=== PATIENT | female | born 1975 | race Caucasian/White ===

== ENCOUNTER 2016-12-02 17:51 | Emergency (ER) | payer SELFPAY ==
[~2016-12-02] VITALS: Ht 163.8 cm; Wt 62.2 kg
[~2016-12-02 17:51] MED LIST: ETONMIS VAGRING
[2016-12-02 17:59] VITALS: TEMP 36.8; Ht 163.8 cm; Wt 62.2 kg
[2016-12-02] MEDS ORDERED: SODIUM CHLORIDE 0.9% 1000ML 1,000 ML IV STA (18:14)
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
[2016-12-02 18:38] LABS: BASO % 0.5 %; BASO ABS # 0.05 K/uL (0-0.2); COMPLETE YES; EOS % 1.9 %; HEMATOCRIT 43.3 % (37-47); IG% 0.1 %; LYMPH ABS # 2.23 K/uL (1.2-3.4); MEAN CELL VOLUME 98.4 fL (80-100); MEAN CORPUSCULAR HEMOGLOBIN 35.2 pg (25-34); MEAN CORPUSCULAR HGB CONC 35.8 g/dl (32-36); MEAN PLATELET VOLUME 11.1 fL (7.4-10.4); MONO % 6.4 %; NEUT % 67.1 %; PLATELET COUNT 144 K/uL (130-400); WHITE BLOOD COUNT 9.29 K/uL (4.8-10.8)
[2016-12-02] MEDS ORDERED: MULT-506 PO (18:40)
[2016-12-02 18:41] VITALS: O2SAT 96
--- NOTE | 2016-12-02 18:41 | DIAGNOSTIC IMAGING REPORT ---
CHEST ONE VIEW PORTABLE CLINICAL HISTORY: CHEST PAIN dyspnea COMPARISON STUDY: No previous studies for comparison. FINDINGS: The bones soft tissues and hemidiaphragms are normal. The cardiomediastinal silhouette is normal. The lungs are clear. The pulmonary vasculature is normal. IMPRESSION: Negative chest. The above report was generated using voice recognition software. It may contain grammatical, syntax or spelling errors. Electronically signed by: Baljeet Villalta M.D. 12/02/2016 6:40 PM Dictated Date/Time: 12/02/2016 6:40 PM
[2016-12-02 18:56] LABS: ALT/SGPT 30 U/L (12-78); AST/SGOT 17 U/L (15-37); BLOOD UREA NITROGEN 5 mg/dl (7-18); BUN/CREATININE RATIO 6.7 (10-20); CALCIUM 8.8 mg/dl (8.5-10.1); CARBON DIOXIDE 25 mmol/L (21-32); CHLORIDE 104 mmol/L (98-107); CREATININE 0.72 mg/dl (0.60-1.20); GLUCOSE 106 mg/dl (70-99); POTASSIUM 3.4 mmol/L (3.5-5.1); SODIUM 137 mmol/L (136-145)
[2016-12-02 19:00] LABS: ALKALINE PHOSPHATASE 100 U/L (45-117)
[2016-12-02 19:02] LABS: INR 0.9 (0.9-1.1); PARTIAL THROMBOPLASTIN RATIO 1.1; PROTHROMBIN TIME (PATIENT) 10.1 SECONDS (9.0-12.0)
[2016-12-02 19:13] LABS: PREG INTERNAL NEGATIVE QC NEG CLEAR BACKGROUND; PREG INTERNAL POSITIVE QC POS CONTROL LINE
--- NOTE | 2016-12-02 19:29 | DIAGNOSTIC IMAGING REPORT ---
(CHEST FOR PE) ANGIO WITH CT DOSE: 166.26 mGy.cm HISTORY: Chest pain dyspnea TECHNIQUE: Multiaxial CT images of the chest were performed following the intravenous administration of contrast to evaluate the pulmonary arteries. Maximal intensity projection images were also obtained. A dose lowering technique was utilized adhering to the principles of ALARA. COMPARISON STUDY: None. FINDINGS: There is a normal caliber thoracic aorta with no evidence for dissection. There is no evidence for pulmonary embolus. No pleural effusions. No pneumothorax. The liver and spleen are unremarkable. No mediastinal or hilar lymphadenopathy. The central airways are patent. The lungs are clear. 3 mm pleural-based nodule right upper lobe with routine follow-up recommended. IMPRESSION: No evidence for pulmonary embolus. The lungs are clear. 3 mm pleural-based nodule right upper lobe with routine follow-up recommended per protocol. Please refer to below summary of Fleischner criteria recommendations for follow-up of incidental CT nodules (Bernard Mathur, Guidelines for management of small pulmonary nodules detected on CT scans: A statement from the Fleischner Society, Radiology 237: [phone].) SOLID NODULES Solitary nodule size: <6 mm * low risk patients: no follow-up needed * high risk patients: optional CT at 12 months Solitary nodule size: 6-8 mm * low risk patients: follow-up at 6-12 months, then consider further follow-up at 18-24 months * high risk patients: initial follow-up CT at 6-12 months and then at 18-24 months if no change Solitary nodule size: >8 mm * either low or high risk patients - consider follow-up CT at 3 months, and/or CT-PET, and/or biopsy Multiple nodules size: <6 mm * low risk patients: no routine follow-up * high risk patients: optional CT at 12 months Multiple nodules size: 6-8 mm * low risk patients: follow-up at 3-6 months, then consider further follow-up at 18-24 months * high risk patients: follow-up at 3-6 months, then at 18-24 months if no change Multiple nodules size: >8 mm * low risk patients: follow-up at 3-6 months, then consider further follow-up at 18-24 months * high risk patients: follow-up at 3-6 months, then at 18-24 months if no change Note: newly detected indeterminate nodule in persons 35 years of age or older. * Low risk patients: minimal or absent history of smoking and/or other known risk factors * high risk patients: history of smoking or of other known risk factors (e.g. first degree relative with lung cancer, or exposure to asbestos, radon, uranium) * if a nodule up to 8 mm is partly solid or is ground glass further follow-up is required after 24 months to exclude possible slow growing adenocarcinoma (JORGE ALBERTO) SUBSOIL NODULES Solitary pure ground-glass nodule * nodule size <6 mm - no CT follow-up required * nodule size >=6 mm - follow-up CT at 6-12 months, then every 2 years until 5 years Solitary part-solid nodule * nodule size <6 mm - no CT follow-up required * nodule size >=6 mm - follow-up CT at 3-6 months. If unchanged, and solid component remains <6 mm, then annual follow-up for 5 years Multiple subsolid nodules * nodule size <6 mm - follow-up CT at 3-6 months, consider further follow-up at 2 and 4 years if stable * nodule size >=6 mm - follow-up CT at 3-6 months, subsequent management based on the most suspicious nodule(s) The above report was generated using voice recognition software. It may contain grammatical, syntax or spelling errors. Electronically signed by: Baljeet Villalta M.D. 12/02/2016 7:28 PM Dictated Date/Time: 12/02/2016 7:25 PM
[2016-12-02] MEDS ORDERED: OPTIRAY 320 IV PRN (19:30)
[2016-12-02] MEDS ORDERED: OXYC1TAB3 PO (19:36)
[2016-12-02] MEDS ORDERED: OXYCODONE IR HOME PACK PO ONE (19:45)
[2016-12-02 19:55] VITALS: BP 167/105; PULSE 89; O2SAT 98
== END 2016-12-02 19:55 | disposition home or self-care (01) ==
LOC: C.EDB 17:52
DX: S20.219A Contusion of unspecified front wall of thorax, initial encounter (principal); R07.9 Chest pain, unspecified; Y93.61 Activity, american tackle football; R91.1 Solitary pulmonary nodule; F17.210 Nicotine dependence, cigarettes, uncomplicated

== ENCOUNTER 2025-03-16 12:34 | Inpatient (IN) ==
[2025-03-16 13:17] LABS: Appearance Urine Clear (Clear); Glucose Urine UA Negative (Negative)
[2025-03-16 13:25] LABS: Hematocrit (blood only) 45.2 % (37.0-47.0); Hemoglobin 16.4 g/dL (12.0-16.0); Immature Granulocytes # (auto) 0.03 K/uL (0.01-0.20); Immature Granulocytes % (auto) 0.4 %; Mean Corpuscular Hemoglobin 34.7 pg (25.0-34.0); Mean Corpuscular Volume 95.8 fL (80.0-100.0); Platelet Count 152 K/uL (130-400); RDW Standard Deviation 44.5 fL (36.4-46.3); Red Blood Count 4.72 M/uL (4.20-5.40); White Blood Count 7.54 K/ul (4.8-10.8)
[2025-03-16 13:39] LABS: Acetaminophen < 3 ug/ml (10-30); Salicylate < 3.0 mg/dl (3.0-30)
[2025-03-16 13:44] LABS: Alanine Aminotransferase 15.0 U/L (7-52); Albumin Globulin Ratio 1.4 (0.9-2); Albumin Level 4.4 gm/dl (3.4-5.0); Alkaline Phosphatase 69.0 U/L (34-104); Anion Gap 11.0 (3-11); Bilirubin,Total 0.8 mg/dl (0.2-1.0); Blood Urea Nitrogen 10.0 mg/dl (6-23); Calcium 9.2 mg/dl (8.6-10.3); Carbon Dioxide 24.0 mmol/L (21-32); Chloride 105.0 mmol/L (98-107); Creatinine Clr Calc Pharmacy 76.1 ml/min; Globulin 3.1 gm/dl (2.5-4.0); Glucose 124.0 mg/dl (70-99(Fasting)); Potassium 3.6 mmol/L (3.5-5.1); Sodium 140.0 mmol/L (136-145); Total Protein 7.5 gm/dl (6.0-8.3)
[2025-03-16 13:57] LABS: Thyroid Stimulating Hormone 0.675 uIu/ml (0.300-4.500)
[2025-03-16 14:07] LABS: Amphetamines+Metham, Urine Neg (Neg); MDMA (Ecstacy), Urine Neg (Neg); Marijuana, Urine Pos (Neg)
--- NOTE | 2025-03-16 14:28 | Emergency Department Note ---
Impression & Plan Depression with suicidal ideation, Alcohol withdrawal ED Provider Note Provider: Aashish Melton MD CHIEF COMPLAINT: Depression, suicidal thoughts HISTORY OF PRESENT ILLNESS: Patient is a 50-year-old female presenting here today reporting that over the past month she has had worsening suicidal thoughts. States she does not have a clear plan but can think of several ways to kill her self. Denies attempting to harm self at this time. States that she history of alcoholism and has been sober for 2 years until about a month ago. Drinking heavy amount of vodka every day. States she just needs to get things sorted and feels very stressed out. Denies wanting to harm others. Not currently with an outpatient counselor/therapist or primary care doctor. States she feels a bit cold and somewhat shaky. Denies a history of hallucinations but was hospitalized with possibly alcohol related seizure several years ago. PAST MEDICAL HISTORY: As noted above MEDICATIONS: Reviewed and states she is not taking current prescription medication SOCIAL HISTORY: Heavy alcohol use, uses marijuana, denies other drugs, lives at home with PHYSICAL EXAM: GENERAL: alert and oriented on bed appears a bit tremulous. Head: normocephalic and atraumatic EYES: No injection, discharge or icterus. EOMI. NECK: Trachea midline. Good range of motion ENT: Mucous membranes pink and moist. LUNGS: Airway patent. No retractions or tachypnea HEART: Regular rate and rhythm. SKIN: Acyanotic, warm, dry, without rashes EXTREMITIES: Without swelling, tenderness or deformity NEUROLOGICAL: Moving all extremities. No aphasia. No facial droop or slurred speech. Ambulatory. Psych: Seems to have some insight but expresses suicidal thoughts and ideation. Denies HI not responding to external stimuli. Flattened affect. Appears anxious. EK beats. Normal sinus rhythm. No PVC or PAC. No acute ST segment elevation or depression QTc 422. CONTINUOUS CARDIAC MONITORING: was ordered and showed a heart rate of 80s to 90s bpm in normal sinus rhythm Patient's laboratory studies and imaging reviewed. Differential includes Mood disorder, infection, hypoglycemia, electrolyte abnormalities, cardiac sources, intracerebral event, toxicologic, trauma, neurologic, as well as other pathologies. IMPRESSION/MEDICAL DECISION MAKING: Seem somewhat anxious. Somewhat hypertensive borderline tachycardic. Denies pain or attempts to harm self but states multiple plans. History of alcohol abuse. Given a bit Ativan here as well as thiamine given her history of significant alcohol use. Basic blood work including alcohol level completed. Last drink was this morning. Slight alcohol level detected 59 not significantly elevated. Does not appear intoxicated. No believe we need additional imaging at this time. No other severe electrolyte abnormalities or renal dysfunction noted. Seen with case management as well given her mental health complaints. Seems quite depressed and reports significant suicidal thoughts. She is wishing for inpatient treatment. Given her history of seizure in the setting of possible alcohol withdrawal in 2020 for she was hospitalized here and what appears to be some early symptoms that could very well be alcohol withdrawal now with some tremulousness and her heavy alcohol use, discussed resisting for inpatient care here to ensure no severe medical alcohol withdrawal before proceeding for rehab/dual diagnosis/inpatient psychiatric care. Hospitalist team was consulted. Given one-time small dose of Ativan here initially. Discussed with the hospitalist case and they will consider the use of phenobarbital. DIAGNOSIS: Depression with suicidal ideation, alcohol withdrawal DISPOSITION: Hospitalist will evaluate Patient was agreeable with this plan. Past Med/Surg History Problem List (Updated 03/16/25 @ 14:28 by Aashish Melton M.D.) Alcohol withdrawal (Acute) Depression with suicidal ideation (Acute) Hypertension Depression with anxiety Seizure (Acute) Malignant hypertension (Acute) Chest pain (Acute) Chest wall contusion (Acute) Medical History Depression with anxiety Hypertension Surgical History No pertinent past surgical history S/P appendectomy Family History Mother Heart disease Diabetes Hypertension Father Heart disease Hypertension Diabetes Other Cancer Lung disease Social History Smoking Status: Current every day smoker Tobacco Type: Cigarettes Age Started Using Tobacco: 19; packs per day: 0.5; Cigarettes Per Day: 10; Hx Alcohol Use: Yes Alcohol type: hard liquor Alcohol Intake Frequency Comment: bottle of vodka per week Hx Substance Use: No Preferred Language: [place] Communication Ability: 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 Beliefs That Will Affect Care: None Current Living Situation: Spouse and Family Current Living Situation Comment: and son current occupational status: employed current occupation: works at [employer] Feels Safe at Home: Yes Safety Concerns: Feels Safe At This Time Assistive Devices: Glasses Allergies Allergies Allergy/AdvReac Type Severity Reaction Status Date / Time No Known Allergies Allergy Verified 05/02/22 14:27 Home Meds Home Medications Medication Instructions Recorded Confirmed chlordiazepoxide HCl 10 mg capsule 10 mg PO QAM 09/19/20 05/02/22 hydroxyzine HCl 25 mg tablet 25 mg PO Q6 PRN Anxiety 09/19/20 05/02/22 medroxyprogesterone 150 mg/mL 150 mg IM . EVERY 3 MONTHS 09/19/20 05/02/22 intramuscular syringe spironolactone 50 mg tablet 50 mg PO BID 09/19/20 05/02/22 trazodone 50 mg tablet 50 mg PO HS PRN Sleep 09/19/20 05/02/22 escitalopram oxalate 10 mg tablet 10 mg PO DAILY 05/02/22 05/02/22 Results & Data (ED) Vital Signs Vital Signs - 24 hr 03/16/25 12:40 03/16/25 13:22 03/16/25 13:28 Temperature 36.8 C 36.7 C Temperature Source Oral Oral Pulse Rate 88 97 H Pulse Rate [Left Apical] 80 Pulse Rate from SpO2 Sensor Respiratory Rate 18 21 Respiratory Effort / Characteristics Non-Labored Spontaneous Spontaneous Short of Breath Respiratory Depth Normal Normal Respiratory Pattern Regular Regular Blood Pressure 170/114 H Blood Pressure [Right Arm] 182/116 H Blood Pressure Mean 132 Blood Pressure Mean [Right Arm] 138 Blood Pressure Position Sitting Blood Pressure Position [Right Arm] Semi-fowlers Pulse Oximetry 93 96 Oxygen Delivery Method Room Air Room Air Sepsis Recent Fever Within 48 Hours No Sepsis New/Unexplained Change in Mental Status No Sepsis Action Taken by Nursing No Action Required 03/16/25 13:30 03/16/25 14:00 03/16/25 14:30 Temperature Temperature Source Pulse Rate 85 92 H 81 Pulse Rate [Left Apical] Pulse Rate from SpO2 Sensor Respiratory Rate 24 24 14 Respiratory Effort / Characteristics Respiratory Depth Respiratory Pattern Blood Pressure 145/98 H 165/103 H 167/110 H Blood Pressure [Right Arm] Blood Pressure Mean 113 123 129 Blood Pressure Mean [Right Arm] Blood Pressure Position Blood Pressure Position [Right Arm] Pulse Oximetry 99 97 96 Oxygen Delivery Method Room Air Room Air Room Air Sepsis Recent Fever Within 48 Hours Sepsis New/Unexplained Change in Mental Status Sepsis Action Taken by Nursing 03/16/25 15:00 03/16/25 15:00 03/16/25 15:00 Temperature Temperature Source Pulse Rate Pulse Rate [Left Apical] Pulse Rate from SpO2 Sensor Respiratory Rate Respiratory Effort / Characteristics Respiratory Depth Respiratory Pattern Blood Pressure 154/99 H 154/99 H 154/99 H Blood Pressure [Right Arm] Blood Pressure Mean 110 110 110 Blood Pressure Mean [Right Arm] Blood Pressure Position Blood Pressure Position [Right Arm] Pulse Oximetry Oxygen Delivery Method Sepsis Recent Fever Within 48 Hours Sepsis New/Unexplained Change in Mental Status Sepsis Action Taken by Nursing 03/16/25 15:00 03/16/25 15:00 03/16/25 15:00 Temperature Temperature Source Pulse Rate 85 Pulse Rate [Left Apical] Pulse Rate from SpO2 Sensor 84 Respiratory Rate 22 Respiratory Effort / Characteristics Respiratory Depth Respiratory Pattern Blood Pressure 154/99 H 154/99 H Blood Pressure [Right Arm] Blood Pressure Mean 110 110 Blood Pressure Mean [Right Arm] Blood Pressure Position Blood Pressure Position [Right Arm] Pulse Oximetry 93 Oxygen Delivery Method Sepsis Recent Fever Within 48 Hours Sepsis New/Unexplained Change in Mental Status Sepsis Action Taken by Nursing 03/16/25 15:27 03/16/25 15:30 03/16/25 15:30 Temperature 37.5 C Temperature Source Oral Pulse Rate 89 Pulse Rate [Left Apical] Pulse Rate from SpO2 Sensor 89 Respiratory Rate 22 Respiratory Effort / Characteristics Respiratory Depth Respiratory Pattern Blood Pressure 142/100 H Blood Pressure [Right Arm] Blood Pressure Mean 111 Blood Pressure Mean [Right Arm] Blood Pressure Position Blood Pressure Position [Right Arm] Pulse Oximetry 92 Oxygen Delivery Method Sepsis Recent Fever Within 48 Hours Sepsis New/Unexplained Change in Mental Status Sepsis Action Taken by Nursing 03/16/25 15:30 03/16/25 15:30 03/16/25 15:30 Temperature Temperature Source Pulse Rate Pulse Rate [Left Apical] Pulse Rate from SpO2 Sensor Respiratory Rate Respiratory Effort / Characteristics Respiratory Depth Respiratory Pattern Blood Pressure 142/100 H 142/100 H 142/100 H Blood Pressure [Right Arm] Blood Pressure Mean 111 111 111 Blood Pressure Mean [Right Arm] Blood Pressure Position Blood Pressure Position [Right Arm] Pulse Oximetry Oxygen Delivery Method Sepsis Recent Fever Within 48 Hours Sepsis New/Unexplained Change in Mental Status Sepsis Action Taken by Nursing 03/16/25 15:30 03/16/25 15:30 03/16/25 15:30 Temperature Temperature Source Pulse Rate Pulse Rate [Left Apical] Pulse Rate from SpO2 Sensor Respiratory Rate Respiratory Effort / Characteristics Respiratory Depth Respiratory Pattern Blood Pressure 142/100 H 142/100 H 142/100 H Blood Pressure [Right Arm] Blood Pressure Mean 111 111 111 Blood Pressure Mean [Right Arm] Blood Pressure Position Blood Pressure Position [Right Arm] Pulse Oximetry Oxygen Delivery Method Sepsis Recent Fever Within 48 Hours Sepsis New/Unexplained Change in Mental Status Sepsis Action Taken by Nursing 03/16/25 15:30 03/16/25 15:30 03/16/25 16:00 Temperature Temperature Source Pulse Rate 87 Pulse Rate [Left Apical] Pulse Rate from SpO2 Sensor 89 Respiratory Rate 25 H Respiratory Effort / Characteristics Respiratory Depth Respiratory Pattern Blood Pressure 142/100 H 142/100 H Blood Pressure [Right Arm] Blood Pressure Mean 111 111 Blood Pressure Mean [Right Arm] Blood Pressure Position Blood Pressure Position [Right Arm] Pulse Oximetry 93 Oxygen Delivery Method Sepsis Recent Fever Within 48 Hours Sepsis New/Unexplained Change in Mental Status Sepsis Action Taken by Nursing 03/16/25 16:00 03/16/25 16:00 03/16/25 16:00 Temperature Temperature Source Pulse Rate Pulse Rate [Left Apical] Pulse Rate from SpO2 Sensor Respiratory Rate Respiratory Effort / Characteristics Respiratory Depth Respiratory Pattern Blood Pressure 147/102 H 147/102 H 147/102 H Blood Pressure [Right Arm] Blood Pressure Mean 128 128 128 Blood Pressure Mean [Right Arm] Blood Pressure Position Blood Pressure Position [Right Arm] Pulse Oximetry Oxygen Delivery Method Sepsis Recent Fever Within 48 Hours Sepsis New/Unexplained Change in Mental Status Sepsis Action Taken by Nursing 03/16/25 16:00 03/16/25 16:00 Temperature Temperature Source Pulse Rate Pulse Rate [Left Apical] Pulse Rate from SpO2 Sensor Respiratory Rate Respiratory Effort / Characteristics Respiratory Depth Respiratory Pattern Blood Pressure 147/102 H 147/102 H Blood Pressure [Right Arm] Blood Pressure Mean 128 128 Blood Pressure Mean [Right Arm] Blood Pressure Position Blood Pressure Position [Right Arm] Pulse Oximetry Oxygen Delivery Method Sepsis Recent Fever Within 48 Hours Sepsis New/Unexplained Change in Mental Status Sepsis Action Taken by Nursing Laboratory Data 03/16/25 13:00 03/16/25 13:00 Lab Results 03/16/25 03/16/25 03/16/25 Range/Units 12:53 12:54 13:00 WBC 7.54 (4.8-10.8) K/ul RBC 4.72 (4.20-5.40) M/uL Hgb 16.4 H (12.0-16.0) g/dL Hct 45.2 (37.0-47.0) % MCV 95.8 (80.0-100.0) fL MCH 34.7 H (25.0-34.0) pg MCHC 36.3 H (32.0-36.0) g/dL RDW Std Deviation 44.5 (36.4-46.3) fL RDW Coeff of Kyle 12.4 (11.5-14.5) % Plt Count 152 (130-400) K/uL MPV 10.3 (9.4-12.4) fL Immature Gran % (Auto) 0.4 % Neut % (Auto) 63.7 % Lymph % (Auto) 27.9 % [place] % (Auto) 4.4 % Eos % (Auto) 2.4 % Baso % (Auto) 1.2 % Neut # (Auto) 4.81 (1.40-6.50) K/uL Lymph # (Auto) 2.10 (1.20-3.40) K/uL [place] # (Auto) 0.33 (0.11-0.59) K/uL Eos # (Auto) 0.18 (0.00-0.50) K/uL Baso # (Auto) 0.09 (0.00-0.20) K/uL Immature Gran # (Auto) 0.03 (0.01-0.20) K/uL Sodium 140 (136-145) mmol/L Potassium 3.6 (3.5-5.1) mmol/L Chloride 105 (98-107) mmol/L Carbon Dioxide 24 (21-32) mmol/L Anion Gap 11 (3-11) BUN 10 (6-23) mg/dl Creatinine 0.72 (0.6-1.2) mg/dl Est Cr Clr Drug Dosing 76.1 ml/min eGFR 102.43 BUN/Creatinine Ratio 13.9 (10-20) Glucose 124 H (70-99(Fasting)) mg/dl Calcium 9.2 (8.6-10.3) mg/dl Total Bilirubin 0.8 (0.2-1.0) mg/dl AST 18 (13-39) U/L ALT 15 (7-52) U/L Alkaline Phosphatase 69 (34-104) U/L Total Protein 7.5 (6.0-8.3) gm/dl Albumin 4.4 (3.4-5.0) gm/dl Globulin 3.1 (2.5-4.0) gm/dl Albumin/Globulin Ratio 1.4 (0.9-2) TSH 0.675 (0.300-4.500) uIu/ml Urine Color Yellow Urine Appearance Clear (Clear) Urine pH 5.0 (4.5-7.5) Ur Specific [place] 1.020 (1.000-1.030) Urine Protein Negative (Negative) Urine Glucose (UA) Negative (Negative) Urine Ketones Negative (Negative) Urine Blood Negative (Negative) Urine Nitrite Negative (Negative) Urine Bilirubin Negative (Negative) Urine Urobilinogen Negative (Negative) Ur Leukocyte Esterase Negative (Negative) Urine Comment Salicylates < 3.0 L (3.0-30) mg/dl Urine Opiates Screen Neg (Neg) Ur Methadone, Qual Neg (Neg) Urine Fentanyl Screen Neg (Neg) Acetaminophen < 3 L (10-30) ug/ml Urine Barbiturates Neg (Neg) Ur Phencyclidine (PCP) Neg (Neg) U Amphetamin/Meth Scrn Neg (Neg) MDMA (Ecstasy) Screen Neg (Neg) U Benzodiazepines Scrn Neg (Neg) Ur Cocaine Metabolite Neg (Neg) U Marijuana (THC) Screen Pos H (Neg) Ethyl Alcohol mg/dL 59.5 H (<10.0) mg/dl SARS-CoV-2, RNA, NAAT NEGATIVE (NEGATIVE) Administered Medications Discontinued Medications Thiamine HCl 100 mg/ Syringe 10 mls @ 2 mls/min IV NOW STA Stop: 03/16/25 14:25 Last Admin: 03/16/25 15:17 Dose: 2 mls/min Documented By: JENNIFER Phenobarbital Sodium 260 mg/ (Sodium Chloride) 52 mls @ 312 mls/hr IV ONE ONE Stop: 03/16/25 16:34 Last Infusion: 03/16/25 17:30 Dose: Infused Documented By: Admin: 03/16/25 16:39 Dose: 312 mls/hr Documented By: JENNIFER Lorazepam (Lorazepam 1 Mg/1 Ml Syr Ed Inj Use) 1 mg IV ONE STA Stop: 03/16/25 14:22 Last Admin: 03/16/25 14:36 Dose: 1 mg Documented By: [facility] Phenobarbital Sodium (Phenobarbital Sodium 130 Mg/Ml Vial) 195 mg 3.6 mg/kg (195 mg) IM ONE ONE Stop: 03/16/25 19:34 Last Admin: 03/16/25 20:04 Dose: 195 mg Documented By: Discharge Plan Visit Data Chief Complaint: Mental Health Evaluation Stated Complaint: MENTAL HEALTH EVAL ED Provider: Aashish Melton Discharge Problem: Depression with suicidal ideation, Alcohol withdrawal Patient Disposition: Admitted As Inpatient Condition: Fair Discharge Instructions Interventions: ED Discharge Assessment Last Done: 03/16/25 17:19
[2025-03-16] MEDS: LORazepam 1 MG/1 ML SYR ED Inj Use IV STA (14:36)
[2025-03-16] MEDS: THIAMINE HCL 100 MG in SYRINGE 9 ML IV STA (15:17)
[2025-03-16] MEDS ORDERED: STAT IV/IM STA (16:17)
--- NOTE | 2025-03-16 16:19 | History & Physical Report ---
Date of Service March 16, 2025 Assessment & Plan (1) Alcohol withdrawal: Plan suicide ideation in a 50 yo female with depression. one to one psyh consult safe tray and monitor. will discuss with case management. Alcohol withdrawal phenobarbital loading dose with IV and IM doses WIll then start tapering tomorrow. Patient currently stable with regular vitals, will closely monitor. previously on naltrexone but lost insurance. History of Present Illness Primary Care Provider: NO PCP 50 yo female who arrives to the ED for suicidal ideation.Patient does not have a plan. Patient has not attempted any plan to hurt herself or others. Patient though also drinks 1 liter of vodka daily for past month. Prior to this she had been sober for 2 years. Patient is seeking help for her depression and concern for alcohol withdrawal. Allergies Allergy/AdvReac Type Severity Reaction Status Date / Time No Known Allergies Allergy Verified 05/02/22 14:27 Home Medications Medication Instructions Recorded Confirmed Type chlordiazepoxide HCl 10 mg capsule 10 mg PO QAM 09/19/20 05/02/22 History hydroxyzine HCl 25 mg tablet 25 mg PO Q6 PRN Anxiety 09/19/20 05/02/22 History medroxyprogesterone 150 mg/mL 150 mg IM . EVERY 3 MONTHS 09/19/20 05/02/22 Hist ory intramuscular syringe spironolactone 50 mg tablet 50 mg PO BID 09/19/20 05/02/22 History trazodone 50 mg tablet 50 mg PO HS PRN Sleep 09/19/20 05/02/22 History escitalopram oxalate 10 mg tablet 10 mg PO DAILY 05/02/22 05/02/22 History Past Med/Surg History Problem List Alcohol withdrawal (Acute) Depression with suicidal ideation (Acute) Hypertension Depression with anxiety Seizure (Acute) Malignant hypertension (Acute) Chest pain (Acute) Chest wall contusion (Acute) Surgical History S/P appendectomy No pertinent past surgical history Family History Mother Heart disease Diabetes Hypertension Father Heart disease Hypertension Diabetes Other Cancer Lung disease Social History Smoking Status: Current every day smoker Tobacco Type: Cigarettes Age Started Using Tobacco: 19; packs per day: 0.5; Cigarettes Per Day: 10; Hx Alcohol Use: Yes Alcohol type: hard liquor Alcohol Intake Frequency Comment: bottle of vodka per week Hx Substance Use: No Preferred Language: Guatemalan Communication Ability: Effective Emergency Management Consultant Required: No Beliefs That Will Affect Care: None Current Living Situation: Spouse and Family Current Living Situation Comment: and son current occupational status: employed current occupation: works at [employer] Feels Safe at Home: Yes Safety Concerns: Feels Safe At This Time Assistive Devices: Glasses Review of Systems Constitutional: no fever and no weight gain Eyes: no blind spots Ear, Nose, Mouth, Throat: no ear pain Respiratory: no cough and no dyspnea Cardiovascular: no chest pain Gastrointestinal: no abdominal pain Genitourinary: no dysuria Musculoskeletal: no back pain Integumentary: no acne Neurologic: no gait abnormality Psychiatric: no behavioral changes Endocrine: no fatigue Hematologic / Lymphatic: no easy bleeding Allergy / Immunological: no GI upset with certain foods Physical Exam Constitutional: WD/WN, vitals as above Eyes: PERRL, conjunctivae normal, anicteric sclerae ENMT: external ear and nose normal, oropharynx normal Neck: trachea midline, no thyromegaly Respiratory: normal respiratory effort, lungs clear to auscultation Cardiovascular: RRR, no murmur, no edema Gastrointestinal (Abdomen): normal bowel sounds, soft, nontender, no hepatosplenomegaly Musculoskeletal: no cyanosis or clubbing, extremities motor strength 5/5 Skin: no rashes, warm and dry Neurologic: PERRL, EOMI, accommodation nl, no face palsy, no dysarthria Psychiatric: A+Ox3, euthymic affect Lymphatic: no cervical or axillary lymphadenopathy Results & Data Results & Data Vital Signs (Past 12 Hours) Vital Signs Temp Pulse Pulse Resp BP BP Pulse Ox 03/16/25 15:30 142/100 H 03/16/25 15:30 142/100 H 03/16/25 15:30 142/100 H 03/16/25 15:30 142/100 H 03/16/25 15:30 142/100 H 03/16/25 15:30 89 22 92 03/16/25 15:27 37.5 C 03/16/25 15:00 85 22 93 03/16/25 15:00 154/99 H 03/16/25 15:00 154/99 H 03/16/25 15:00 154/99 H 03/16/25 15:00 154/99 H 03/16/25 15:00 154/99 H 03/16/25 14:30 81 14 167/110 H 96 03/16/25 14:00 92 H 24 165/103 H 97 03/16/25 13:30 85 24 145/98 H 99 03/16/25 13:28 97 H 03/16/25 13:22 36.7 C 80 21 182/116 H 96 03/16/25 12:40 36.8 C 88 18 170/114 H 93 O2 Del Method 03/16/25 15:30 03/16/25 15:30 03/16/25 15:30 03/16/25 15:30 03/16/25 15:30 03/16/25 15:30 03/16/25 15:27 03/16/25 15:00 03/16/25 15:00 03/16/25 15:00 03/16/25 15:00 03/16/25 15:00 03/16/25 15:00 03/16/25 14:30 Room Air 03/16/25 14:00 Room Air 03/16/25 13:30 Room Air 03/16/25 13:28 03/16/25 13:22 Room Air 03/16/25 12:40 Room Air PG Care Time/CCT Total # of Minutes Spent Total Time Spent with Patient: Total time spent is greater than 50% in coordination of care (as documented) at patient's floor/unit and/or counseling patient: Coding Level of Care Code 15272 INT INP/OBS CARE 3/75MIN Diagnoses Alcohol withdrawal F10.939
[2025-03-17 07:13] LABS: Hematocrit (blood only) 41.1 % (37.0-47.0); Hemoglobin 15.0 g/dL (12.0-16.0); Mean Corpuscular Hemoglobin 34.6 pg (25.0-34.0); Mean Corpuscular Volume 94.7 fL (80.0-100.0); Platelet Count 120 K/uL (130-400); RDW Standard Deviation 41.8 fL (36.4-46.3); Red Blood Count 4.34 M/uL (4.20-5.40); White Blood Count 6.34 K/ul (4.8-10.8)
[2025-03-17 07:27] LABS: Anion Gap 9 (3-11); Blood Urea Nitrogen 17 mg/dl (6-23); Calcium 9.1 mg/dl (8.6-10.3); Carbon Dioxide 26 mmol/L (21-32); Chloride 100 mmol/L (98-107); Creatinine Clr Calc Pharmacy 81.2 ml/min; Glucose 97 mg/dl (70-99(Fasting)); Potassium 3.7 mmol/L (3.5-5.1); Sodium 135 mmol/L (136-145)
--- NOTE | 2025-03-17 08:32 | Electrocardiogram Report ---
Test Reason : Blood Pressure : */* mmHG Vent. Rate : 81 BPM Atrial Rate : 81 BPM P-R Int : 156 ms QRS Dur : 66 ms QT Int : 364 ms P-R-T Axes : 47 2 42 degrees QTcB Int : 422 ms Normal sinus rhythm Normal ECG When compared with ECG of 02-May-2022 15:19, No significant change was found Confirmed by Ghassan Friedman ([id number]) on 03/17/2025 8:31:33 AM Referred By: REFERRED SELF Confirmed By: Ghassan Friedman
[2025-03-17] MEDS ORDERED: Nursing to Pharmacy Communication SCH (14:45)
[2025-03-17] MEDS: NICOTINE 21 MG/24 HR TDSY TD SCH (15:04)
[2025-03-17 15:18] VITALS: BP 115/80; PULSE 65; RESP 17; TEMP 97; O2SAT 96
--- NOTE | 2025-03-17 16:39 | Psychiatric Consultation ---
Date of Consultation March 17, 2025 Impression / Recommendations Impression Patient is a 50-year-old female with a history of depression, alcohol use disorder, who was admitted to the medical floor via ED due to alcohol withdrawal symptoms. Psychiatry consulted due to concerns about suicidal ideation. According to ED note from 03/16, patient does not have a plan and has not made any recent attempts. In reviewing her chart, it is important to note that patient has elevated MCH and the CBC and has had brain imaging in previous years (2020) due to concerns about microvascular ischemic disease. She is currently receiving B1 supplementation due to the history of alcohol use. I will order B12, methylmalonic acid, and homocystine levels. Recommend B12 supplementation if the level is lower than 400 to prevent neuropsychiatric symptoms. On exam, presented with dysphoric affect and was tearful. she exhibits hopelessness and guilt and shame related to alcohol use. Suicidal ideations are still present. Patient is agreeable to starting medication and to be voluntarily admitted to the mental health unit for further stabilization. (1) Alcohol withdrawal: Plan Continue one-to-one sitter/ observation due to suicide risk Admit to 3[facility] when medically cleared Labs ordered B12, methylmalonic acid, homocystine. Discussed treatment options for depression, patient will benefit from SNRI, she agreed to try Cymbalta. Will start Cymbalta 20 mg p.o. every morning. Psych History Identifying Data JAIR ZIMMERMAN is a 50-year-old F who currently lives and 18-year-old son, has a history of alcohol use disorder and depression and was admitted on 03/16/25 16:16 to the medical floor due to alcohol withdrawal symptoms after she presented to the ER complaining of suicidal thoughts. Chief Complaint "Everybody is sick, I just started drinking again.". History of Present Illness The patient shared that she has had struggled with alcohol use for many years on and off. She has been to to rehab and lost her job after she was found drinking during working hours. More recently she learned that her mother has end-stage cancer. Her only brother is disabled and lives with her mother. Patient has been feeling increasingly sad and lonely which led to the relapse on alcohol. Patient reported that previous relapses have occurred during episodes of severe stress but sometimes also unexpectedly. She denied drinking while . Has been able to remain sober for episodes of over a year. Losing her job because lost of insurance coverage therefore she was unable to axis treatment. Patient described feeling depressed most of the day for a few months now. She has been feeling lonely and has had suicidal ideations that started on the day of admission (03/16/2025.). Patient admits that she was gathering all kinds of medication that she could find in the house with the intent to overdose. When asked what stopped her, patient stated "my pets were becoming very clingy, I guess they could send something was wrong, and I started to worry we will take care of them if I was gone." Although she reports that she has a good relationship with her and son, she complains of feeling along the and believes that her is unaware of her depression. Allergies Allergy/AdvReac Type Severity Reaction Status Date / Time No Known Allergies Allergy Verified 05/02/22 14:27 Home Medications Medication Instructions Recorded Confirmed Type chlordiazepoxide HCl 10 mg capsule 10 mg PO QAM 09/19/20 05/02/22 History hydroxyzine HCl 25 mg tablet 25 mg PO Q6 PRN Anxiety 09/19/20 05/02/22 History medroxyprogesterone 150 mg/mL 150 mg IM . EVERY 3 MONTHS 09/19/20 05/02/22 History intramuscular syringe spironolactone 50 mg tablet 50 mg PO BID 09/19/20 05/02/22 History trazodone 50 mg tablet 50 mg PO HS PRN Sleep 09/19/20 05/02/22 History escitalopram oxalate 10 mg tablet 10 mg PO DAILY 05/02/22 05/02/22 History nicotine 21 mg/24 hr daily 1 patch transdermal QAM #3 ea 03/17/25 Rx transdermal patch (Nicoderm CQ) phenobarbital 15 mg tablet 15 mg PO Q12H #4 tabs 03/17/25 Rx phenobarbital 30 mg tablet 30 mg PO Q12H #4 tabs 03/17/25 Rx phenobarbital 30 mg tablet 60 mg (2 x 30 mg) PO Q12H #3 tabs 03/17/25 Rx Patient History Surgical History S/P appendectomy No pertinent past surgical history Family History Mother Heart disease Diabetes Hypertension Father Heart disease Hypertension Diabetes Other Cancer Lung disease Social History Smoking Status: Current every day smoker Tobacco Type: Cigarettes Age Started Using Tobacco: 19; packs per day: 0.5; Cigarettes Per Day: 10; Hx Alcohol Use: Yes Alcohol type: hard liquor Alcohol Intake Frequency Comment: bottle of vodka per week Hx Substance Use: No Preferred Language: Faroese 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 Beliefs That Will Affect Care: None Current Living Situation: Spouse and Family Current Living Situation Comment: and son current occupational status: employed current occupation: works at [employer] Feels Safe at Home: Yes Safety Concerns: Feels Safe At This Time Assistive Devices: None Physical Exam Mental Examination: Appearance: Unkempt Eye Contact: Maintains Eye Contact Motor Behavior: Unremarkable Speech: Normal Mood: Depressed and Tearful Affect: Sad Thought Process: Intact Thought Content: Linear Hallucinations: None Insight: Fair Judgement: Fair Vital Signs (Past 24 Hours): Last Vital Signs Temp 36.1 C L 03/17/25 15:00 Pulse 65 03/17/25 15:00 Resp 17 03/17/25 15:00 BP 115/80 03/17/25 15:00 Pulse Ox 96 03/17/25 15:00 O2 Del Method Room Air 03/17/25 15:00 Physical Examination: A physical exam was performed in the [ED] by Dr Matson for the purposes of medical clearance. I accept that physical as correct and adequate for the purposes of the inpatient physical exam. Review of Systems Denies shortness of breath Additional Comments: Denies chest pain Reported decreased appetite Reported previous episodes of seizures (likely withdrawal seizure) but no recent seizure activity As stated above Results & Data (PSY) Laboratory Results According to medical record, onFebruary this patient had new onset nonspecific cognitive problems, word-finding problems and slurred speech of a transient nature, all resolving by the time she got to the emergency room.She had a markedly elevated blood pressure of 201/123 which was normalized the next day. Diagnostic Findings MDD, recurrent, severe, without psychosis alcohol use disorder severe Medications Administered Nicotine (Nicotine 21 Mg/24 Hr Tdsy) 1 patch TD QAM SHYANNE Stop: 04/16/25 14:44 Last Admin: 03/17/25 15:04 Dose: 1 patch Documented By: dst Phenobarbital (Phenobarbital 30 Mg Tab) 60 mg PO Q12H SHYANNE Stop: 03/19/25 03:01 Last Admin: 03/17/25 15:04 Dose: 60 mg Documented By: rufina [place] [address] IN/OBS CONSULT LVL 5,80M Patient Type New History Detailed Exam Detailed Medical Decision Making High Complexity Diagnoses Alcohol withdrawal F10.939 Time Spent (min) 85
--- NOTE | 2025-03-17 18:29 | Discharge Summary ---
Discharge Summary Date of Service March 17, 2025 Principal Dx & Hospital Course #1 = Principal Diagnosis Admission HPI Per Admitting Provider 50 yo female who arrives to the ED for suicidal ideation.Patient does not have a plan. Patient has not attempted any plan to hurt herself or others. Patient though also drinks 1 liter of vodka daily for past month. Prior to this she had been sober for 2 years. Patient is seeking help for her depression and concern for alcohol withdrawal. Discharge Exam Constitutional WD/WN, vitals as above Eyes PERRL, conjunctivae normal, anicteric sclerae ENMT external ear and nose normal, oropharynx normal Neck trachea midline, no thyromegaly Respiratory normal respiratory effort, lungs clear to auscultation Cardiovascular RRR, no murmur, no edema Gastrointestinal (Abdomen) normal bowel sounds, soft, nontender, no hepatosplenomegaly Musculoskeletal no cyanosis or clubbing, extremities motor strength 5/5 Skin no rashes, warm and dry Neurologic PERRL, EOMI, accommodation nl, no face palsy, no dysarthria Psychiatric A+Ox3, euthymic affect Lymphatic no cervical or axillary lymphadenopathy Discharge Plan Discharge Items Reason For Visit: ALCOHOL WITHDRAWAL Discharge Diagnosis: alcohol withdrawal Condition on Discharge: Fair Activity: Resume your previous activity Non-emergency contact: Primary Care Provider Call non-emergency contact if: you have any medication questions Follow-up/Referrals: PCP,NO [Primary Care Provider] - Diet: Regular Addtl Attending Provider Instructions: Continue phenobarbital taper 60 mg q12 h for 4 doses first dose was this afternoon. Continue for 3 more doses May take next dose around 11 pm. Then 30 mg PO Q12h for 4 doses then 15 mg PO Q12h for 4 doses Pending Studies at Discharge: No Stand-Alone Forms: [facility] Medications and DC Order Prescriptions: New phenobarbital 15 mg Tablet 15 mg PO Q12H Qty: 4 0RF phenobarbital 30 mg Tablet 60 mg PO Q12H Qty: 3 0RF phenobarbital 30 mg Tablet 30 mg PO Q12H Qty: 4 0RF nicotine [Nicoderm CQ] 21 mg/24 hr Patch 24 Hour 1 patch transdermal QAM Qty: 3 0RF Held trazodone 50 mg Tablet 50 mg PO HS PRN (Reason: Sleep) Hold Instructions: Provider's Order chlordiazepoxide HCl 10 mg capsule 10 mg PO QAM Hold Instructions: Provider's Order spironolactone 50 mg Tablet 50 mg PO BID Hold Instructions: Provider's Order medroxyprogesterone 150 mg/mL Syringe 150 mg IM . EVERY 3 MONTHS Hold Instructions: Provider's Order hydroxyzine HCl 25 mg Tablet 25 mg PO Q6 PRN (Reason: Anxiety) Hold Instructions: Provider's Order escitalopram oxalate 10 mg tablet 10 mg PO DAILY Hold Instructions: Provider's Order Admission Data Admit Date/Time: 03/16/25 16:16 Attending Provider: Guido Madison Admit Provider: Guido Madison Primary Care Provider: PCP,NO Other Providers: Guido Madison; Kellen Rain; Luis Camp; Krissy Carrero; Marita Miller; Ludwig Waller; Junior Fonseca; Christian Lemus; Yasmin Cline Hospital Stay Data Consultations 03/16/25 14:43 ED Decision to Admit Stat 03/16/25 19:02 Consult Psychiatry Routine Pending Results Patient Have Any Pending Studies at Discharge: No Discharge Instructions Given to Patient (Per Discharging Provider) Continue phenobarbital taper 60 mg q12 h for 4 doses first dose was this afternoon. Continue for 3 more doses May take next dose around 11 pm. Then 30 mg PO Q12h for 4 doses then 15 mg PO Q12h for 4 doses Coding
[2025-03-18] MEDS ORDERED: REMOVE NICODERM PATCH SCH (08:59)
== END 2025-03-17 22:20 | DRG 897 ==
LOC: SUATTDRO → ED 12:34 → 2E 16:16

== ENCOUNTER 2025-03-17 22:12 | Inpatient (IN) ==
[2025-03-17] MEDS ORDERED: MAGNESIUM HYDROXIDE SUSP 30 ML UDC PO PRN (22:13)
[2025-03-17] MEDS ORDERED: SODIUM CHLORIDE 0.65% NA SOLN 45 ML (OCEAN) PRN (22:13)
[2025-03-17] MEDS ORDERED: ACETAMINOPHEN 325 MG TAB PO PRN (22:13)
[2025-03-17] MEDS ORDERED: ALUMINUM/MAGNESIUM SUSP 30 ML UDC PO PRN (22:13)
[2025-03-18 00:17] VITALS: O2SAT 96
[2025-03-18] MEDS: NICOTINE 21 MG/24 HR TDSY TD SCH (08:21)
[2025-03-18] MEDS: REMOVE NICODERM PATCH SCH (08:25)
--- NOTE | 2025-03-18 11:25 | History & Physical ---
Date of Service March 18, 2025 Impression / Recommendations Impression Patient with MDD, severe, without psychosis and long history of alcohol use disorder with recent relapsed that cause exacerbation of depression symptoms. Alcohol withdrawal symptoms responding well to phenobarbital taper. No evidence of tremor or seizures. Tolerated initial dose of CYmbalta a and willing to continue medication optimization. (1) Alcohol withdrawal: (2) Depression with suicidal ideation: (3) B12 deficiency: Plan The patient was admitted to the [facility] mental [facility]) on q15 min checks (behavioral with suicide precautions) for safety. The patient will participate in group, recreational, and milieu therapies and will be offered additional individual and family sessions as clinically appropriate. -Increase Cymbalta to 20 mg p.o. twice daily -Will give B12 1000 mcg IM first dose now, recommend once a week x 4, and then continue monthly -Start folic acid 1 mg daily -Continue phenobarbital 30 mg p.o. twice daily for 4 doses and continue tapering off as clinically indicated. Suicide Risk Level Suicide Risk Level: High-Moderate (q15 min suicide checks) Psychiatric History Identifying Data JAIR ZIMMERMAN is a 50-year-old F who currently lives and 18-year-old son, has a history of alcohol use disorder and depression and was admitted on 03/16/25 16:16 to the medical floor due to alcohol withdrawal symptoms after she presented to the ER complaining of suicidal thoughts. She was admitted to on 03/17/25 22:28 on a 201 voluntary. Chief Complaint "I was crying earlier, but I feel better now." History of Present Illness Patient is a 50-year-old female with a history of depression, alcohol use disorder, who was admitted to the medical floor via ED due to alcohol withdrawal symptoms. Psychiatry consulted on 03/17/25. During the psychiatric evaluation on 03/17/25, presented with dysphoric affect and was tearful. she exhibits hopelessness and guilt and shame related to alcohol use. Suicidal ideations are still present. Patient agreed to start medication for depression and anxiety, and to be voluntarily admitted to the mental health unit for further stabilization. She was still receiving Phenobarb orally for alcohol withdrawal. Patient was admitted to in the evening after being assessed as medically cleared by the primary team. The labs I ordered during the consult were still pending (B12, methylmalonic acid, homocystine). Patient described feeling depressed most of the day for a few months now. She has been feeling lonely and has had suicidal ideations that started on the day of admission (03/16/2025.). Patient admits that she was gathering all kinds of medication that she could find in the house with the intent to overdose. When asked what stopped her, patient stated "my pets were becoming very clingy, I guess they could send something was wrong, and I started to worry we will take care of them if I was gone." Although she reports that she has a good relationship with her and son, she complains of feeling along the and believes that her is unaware of her depression. Today, patient reported she took the first dose of Cymbalta with no evidence of side effects. She is agreeable to optimizing the dose. We received B12 level (below 300) and patient agreed to receiving IM supplementation. Past Psychiatric History Previous Psych History: Long hx of alcohol use disorder. SHe denied any history of suicide attempts or inpatient hospitalizations - has been to rehab x 2. Pt states withdrawal symptoms in the past that include one seizure in 2020 and one DUI. SHe lost her job due to drinking while at work. Pt states being on other medication(s) but cannot remember the name(s) at this time. Pt states 2 past rehab stays that she believes were 3 and 5 years ago.. Current Psychiatric Diagnosis: Major Depressive Disorder Outpatient Services: none recently Previous Psych Admissions: denied History of Previous Suicide Attempt: No Allergies Allergy/AdvReac Type Severity Reaction Status Date / Time No Known Allergies Allergy Verified 05/02/22 14:27 Home Medications Medication Instructions Recorded Confirmed Type chlordiazepoxide HCl 10 mg capsule 10 mg PO QAM 09/19/20 03/17/25 History hydroxyzine HCl 25 mg tablet 25 mg PO Q6 PRN Anxiety 09/19/20 03/17/25 History medroxyprogesterone 150 mg/mL 150 mg IM . EVERY 3 MONTHS 09/19/20 03/17/25 History intramuscular syringe spironolactone 50 mg tablet 50 mg PO BID 09/19/20 03/17/25 History trazodone 50 mg tablet 50 mg PO HS PRN Sleep 09/19/20 03/17/25 History escitalopram oxalate 10 mg tablet 10 mg PO DAILY 05/02/22 03/17/25 History nicotine 21 mg/24 hr daily 1 patch transdermal QAM #3 ea 03/17/25 03/17/25 Rx transdermal patch (Nicoderm CQ) phenobarbital 15 mg tablet 15 mg PO Q12H #4 tabs 03/17/25 03/17/25 Rx phenobarbital 30 mg tablet 30 mg PO Q12H #4 tabs 03/17/25 03/17/25 Rx phenobarbital 30 mg tablet 60 mg (2 x 30 mg) PO Q12H #3 tabs 03/17/25 03/17/25 Rx Family History Family History of: Doesn't Know Alcohol History Hx of Alcohol Use Over the Past 12 Months: Yes (5th of vodka daily for past month) AUDIT Total Score: 31 Smoking Use Have You Smoked or Used Tobacco Products in the Last 30 Days: Yes tobacco type: cigarettes Smoking Status: Current every day smoker Smoking packs per day: 0.5 Substance History Hx of Prescription Med Misuse Over the Past 12 Months: No Hx of Over the Counter Med Misuse Over the Past 12 Months: No Hx of Inhalent Misuse Over the Past 12 Months: No Hx of Organic Substance Use Over the Past 12 Months: Yes (Medical marijuana daily) Hx of Illegal Substances/Street Drug Use Over Past 12 Months: No Problems as a Result of Past Substance Use: Arrested and Life out of Control Personal History Marital Status: Beliefs That Will Affect Care: None Patient History Surgical History S/P appendectomy No pertinent past surgical history Family History Mother Heart disease Diabetes Hypertension Father Heart disease Hypertension Diabetes Other Cancer Lung disease Social History Smoking Status: Current every day smoker Tobacco Type: Cigarettes Age Started Using Tobacco: 19; packs per day: 0.5; Cigarettes Per Day: 10; Hx Alcohol Use: Yes Alcohol type: hard liquor Alcohol Intake Frequency Comment: bottle of vodka per week Hx Substance Use: No Preferred Language: French Communication Ability: Effective Home Organizer Required: No Beliefs That Will Affect Care: None Current Living Situation: Spouse and Family Current Living Situation Comment: and son current occupational status: employed current occupation: works at [employer] Feels Safe at Home: Yes Gender Identity: Female Assistive Devices: Glasses Review of Systems Review of Systems: All systems reviewed & are unremarkable except as noted in HPI & below Physical Exam Mental Examination: Appearance: Unkempt Eye Contact: Maintains Eye Contact Motor Behavior: Slowed Speech: Normal Mood: Depressed Affect: Appropriate Thought Process: Intact Insight: Good Judgement: Good Vital Signs (Past 24 Hours): Last Vital Signs Temp 36.3 C L 03/18/25 06:00 Pulse 75 03/18/25 06:24 Resp 16 03/18/25 06:00 BP 116/88 03/18/25 06:24 Pulse Ox 96 03/17/25 23:50 O2 Del Method Room Air 03/17/25 23:50 Physical Examination: A physical exam was performed in the medical floor on 03/17 by Guido Madison for the purposes of medical clearance. I accept that physical as correct and adequate for the purposes of the inpatient physical exam. Results & Data ([facility] [[email or web address]]) Current Inpatient Medications Current Inpatient Medications: Current Inpatient Medications Acetaminophen (Acetaminophen 325 Mg Tab) 650 mg PO Q4H PRN PRN Reason: Headache or Minor Fever Stop: 04/16/25 22:12 Al Hydrox/Mg Hydrox/Simethicone (Aluminum/Magnesium Susp 30 Ml Udc) 30 ml PO Q4H PRN PRN Reason: GI Upset Stop: 04/16/25 22:12 Bismuth Subsalicylate (Bismuth Subsalicylate 262 Mg Chew) 2 tab PO Q30M PRN PRN Reason: Loose Stool/Diarrhea Stop: 04/16/25 22:12 Duloxetine HCl (Duloxetine Hcl 20 Mg Cap) 20 mg PO QAM [facility] Stop: 04/17/25 08:59 Last Admin: 03/18/25 08:20 Dose: 20 mg Hydroxyzine HCl (Hydroxyzine Hcl 25 Mg Tab) 50 mg PO HSZ PRN PRN Reason: Insomnia Stop: 04/16/25 22:12 Hydroxyzine HCl (Hydroxyzine Hcl 25 Mg Tab) 25 mg PO Q4H PRN PRN Reason: Anxiety Stop: 04/16/25 22:12 Magnesium Hydroxide (Magnesium Hydroxide Susp 30 Ml Udc) 30 ml PO DAILY PRN PRN Reason: Constipation Stop: 04/16/25 22:12 Miscellaneous (Remove Nicoderm Patch) 1 each N/A DAILY@0859 [facility] Stop: 04/17/25 08:58 Last Admin: 03/18/25 08:25 Dose: Not Given Nicotine (Nicotine 21 Mg/24 Hr Tdsy) 1 patch TD QAM [facility] Stop: 04/17/25 08:59 Last Admin: 03/18/25 08:21 Dose: 1 patch Sodium Chloride (Sodium Chloride 0.65% Na Soln 45 Ml ([place])) 1 - 2 sprays NA PRN PRN PRN Reason: Nasal Dryness/Congestion Stop: 04/16/25 22:12
[2025-03-18] MEDS: FOLIC ACID 1 MG TAB PO SCH (14:07)
[2025-03-18] MEDS: CYANOCOBALAMIN 1000 MCG/ML VIAL IM ONE (14:08)
[2025-03-19] MEDS: BISMUTH SUBSALICYLATE 262 MG CHEW PO PRN (09:47)
--- NOTE | 2025-03-19 10:06 | Psychiatric Progress Note ---
Date of Service March 19, 2025 Impression / Recommendations Impression Patient with MDD, severe, without psychosis and long history of alcohol use disorder with recent relapsed that cause exacerbation of depression symptoms. Alcohol withdrawal symptoms responding well to phenobarbital taper. No evidence of tremor or seizures. Patient is tolerating the taper of phenobarbital GI side effects developed after the increase of Cymbalta and has not exhibited withdrawal symptoms. The patient is willing to continue the same dose and allow the symptoms to subside naturally. She denies suicidal ideation plan or intent. Still appears very frail. She is less fixated on her stressors and appears to be invested in treatment and recovery. However, her affect is not as bright as yesterday. Will continue to monitor. (1) Alcohol withdrawal: (2) Depression with suicidal ideation: (3) B12 deficiency: Plan 03/19/25: -Continue Cymbalta 20 mg p.o. twice daily -Lowered her phenobarbital to 20 mg p.o. twice daily -Continue vitamin supplementation -As needed loperamide added today -Encouraged to increase water intake 03/18/25: The patient was admitted to the [facility] ([facility] health unit) on q15 min checks (behavioral with suicide precautions) for safety. The patient will participate in group, recreational, and milieu therapies and will be offered additional individual and family sessions as clinically appropriate. -Increase Cymbalta to 20 mg p.o. twice daily -Will give B12 1000 mcg IM first dose now, recommend once a week x 4, and then continue monthly -Start folic acid 1 mg daily -Continue phenobarbital 30 mg p.o. twice daily for 4 doses and continue tapering off as clinically indicated. Suicide Risk Level Suicide Risk Level: High-Moderate (q15 min suicide checks) Risk Factors Assessment Do You Have Access To A Gun?: No Interval History Identifying Information JAIR ZIMMERMAN is a 50-year-old F who currently lives with her and son, has a history of alcohol use disorder and depression, and was admitted on 03/17/25 22:28 on a 201 voluntary commitment for suicidal ideation. Chief Complaint " I got diarrhea" Review of Systems Sleep Information Total Hours of Sleep: 7.5 Meal Information Percent Meal Consumed - Breakfast: 90 Percent Meal Consumed - Lunch: 65 Percent Meal Consumed - Dinner: 95 Subjective Subjective Patient was seen & assessed and interval progress reviewed with treatment team. According to staff patient has been visible in the day area. Participating in group activities. No seizures. Patient told staff that she had concerns about disclosing her recent alcohol relapse with her legal officer. Patient evaluated at bedside. She indicated that her mood has been improving however,; this morning after breakfast she felt sick to stomach and had 1 episode of diarrhea. This occurred after increasing Cymbalta from 20 mg to 40. Patient was educated that this is likely a result of the increase as GI side effects of frequently seen with this medication. She did not have GI symptoms when she started the 20 mg. Denied other associated symptoms except for increased peristalsis. Patient denied symptoms of withdrawal. There is no evidence of tremors. We discussed increasing water intake to improve hydration. Patient is agreeable to obtain current dose. Symptomatic supportive treatment is being provided for diarrhea. Patient reported she had a good visit yesterday with her and her mother. Physical Exam Mental Examination Appearance: Unkempt (Slightly improved) Eye Contact: Maintains Eye Contact Motor Behavior: Unremarkable Speech: Normal Mood: Depressed Affect: Constricted Thought Process: Intact Insight: Good Judgement: Good Vital Signs (Past 24 Hours) Last Vital Signs Temp 36.6 C 03/19/25 06:00 Pulse 81 03/19/25 06:23 Resp 16 03/19/25 06:00 BP 115/83 03/19/25 06:23 Pulse Ox 96 03/17/25 23:50 O2 Del Method Room Air 03/17/25 23:50 A physical exam was performed in the medical floor on 03/17 by Guido Madison for the purposes of medical clearance. I accept that physical as correct and adequate for the purposes of the inpatient physical exam. No changes to physical exam today except for dry lips consistent with mild dehydration. Encouraged to increase water intake. Results & Data ([facility]) Current Inpatient Medications Current Inpatient Medications: Current Inpatient Medications Acetaminophen (Acetaminophen 325 Mg Tab) 650 mg PO Q4H PRN PRN Reason: Headache or Minor Fever Stop: 04/16/25 22:12 Al Hydrox/Mg Hydrox/Simethicone (Aluminum/Magnesium Susp 30 Ml Udc) 30 ml PO Q4H PRN PRN Reason: GI Upset Stop: 04/16/25 22:12 Bismuth Subsalicylate (Bismuth Subsalicylate 262 Mg Chew) 2 tab PO Q30M PRN PRN Reason: Loose Stool/Diarrhea Stop: 04/16/25 22:12 Last Admin: 03/19/25 09:47 Dose: 2 tab Duloxetine HCl (Duloxetine Hcl 20 Mg Cap) 20 mg PO BID SHYANNE Stop: 04/17/25 20:59 Last Admin: 03/19/25 08:57 Dose: 20 mg Folic Acid (Folic Acid 1 Mg Tab) 1 mg PO QAM SHYANNE Stop: 04/17/25 12:29 Last Admin: 03/19/25 08:57 Dose: 1 mg Hydroxyzine HCl (Hydroxyzine Hcl 25 Mg Tab) 50 mg PO HSZ PRN PRN Reason: Insomnia Stop: 04/16/25 22:12 Hydroxyzine HCl (Hydroxyzine Hcl 25 Mg Tab) 25 mg PO Q4H PRN PRN Reason: Anxiety Stop: 04/16/25 22:12 Magnesium Hydroxide (Magnesium Hydroxide Susp 30 Ml Udc) 30 ml PO DAILY PRN PRN Reason: Constipation Stop: 04/16/25 22:12 Miscellaneous (Remove Nicoderm Patch) 1 each N/A DAILY@0859 SHYANNE Stop: 04/17/25 08:58 Last Admin: 03/19/25 09:03 Dose: 1 each Nicotine (Nicotine 21 Mg/24 Hr Tdsy) 1 patch TD QAM SHYANNE Stop: 04/17/25 08:59 Last Admin: 03/19/25 08:58 Dose: 1 patch Phenobarbital (Phenobarbital 30 Mg Tab) 30 mg PO BID SHYANNE Stop: 04/17/25 20:59 Last Admin: 03/19/25 08:58 Dose: 30 mg Sodium Chloride (Sodium Chloride 0.65% Na Soln 45 Ml ([place])) 1 - 2 sprays NA PRN PRN PRN Reason: Nasal Dryness/Congestion Stop: 04/16/25 22:12 Post Discharge Appointments Contact Information Discharge Discharge Address: [address] [place] [id number]
[2025-03-19] MEDS ORDERED: LOPERAMIDE HCL 2 MG CAP PO PRN (11:03)
--- NOTE | 2025-03-20 10:15 | Psychiatric Progress Note ---
Date of Service March 20, 2025 Impression / Recommendations Impression Patient with MDD, severe, without psychosis and long history of alcohol use disorder with recent relapsed that cause exacerbation of depression symptoms. Alcohol withdrawal symptoms responding well to phenobarbital taper. No evidence of tremor or seizures. Patient is showing good initial response to treatment. GI side effects of Cymbalta are slowly resolving. Patient still receiving phenobarbital taper. BP has been stable. Inpatient treatment is still the least restrictive option at this time of her withdrawal process. (1) Alcohol withdrawal: (2) Depression with suicidal ideation: (3) B12 deficiency: Plan 03/20/25 Phenobarbital 15 mg twice daily will continue for today and will lower again tomorrow Continue rest of medications without changes continue unit programming Second dose of B12 scheduled for tomorrow Family meeting scheduled for Wednesday03/19/25: -Continue Cymbalta 20 mg p.o. twice daily -Lowered her phenobarbital to 20 mg p.o. twice daily -Continue vitamin supplementation -As needed loperamide added today -Encouraged to increase water intake 03/18/25: The patient was admitted to the [facility] ([facility]) on q15 min checks (behavioral with suicide precautions) for safety. The patient will participate in group, recreational, and milieu therapies and will be offered additional individual and family sessions as clinically appropriate. -Increase Cymbalta to 20 mg p.o. twice daily -Will give B12 1000 mcg IM first dose now, recommend once a week x 4, and then continue monthly -Start folic acid 1 mg daily -Continue phenobarbital 30 mg p.o. twice daily for 4 doses and continue tapering off as clinically indicated. Suicide Risk Level Suicide Risk Level: High-Moderate (q15 min suicide checks) Risk Factors Assessment Do You Have Access To A Gun?: No Interval History Identifying Information JAIR ZIMMERMAN is a 50-year-old F who currently lives with her and son, has a history of alcohol use disorder and depression, and was admitted on 03/17/25 22:28 on a 201 voluntary commitment for suicidal ideation. Chief Complaint "I did not sleep well last night". Review of Systems Sleep Information Total Hours of Sleep: 9 Meal Information Percent Meal Consumed - Breakfast: 100 Percent Meal Consumed - Lunch: 25 Percent Meal Consumed - Dinner: 100 Nutrition Comment: pt still not feeling well Subjective Subjective Patient was seen & assessed and interval progress reviewed with nursing and social work.. According to staff patient has been going to groups. This morning she is sleepy due to having poor sleep last night. Patient accidentally left the nicotine patch on. Reported bad dreams. Still complaining of stomach upset. Interested in Vivitrol. During the encounter today, Patient exhibited brighter affect her skin color and turgor were improved. She reported that the diarrhea is slowly improving and she did not need to take loperamide Patient reported her mood is improved. She is hoping to get the Vivitrol injection before discharge. It appears that her insight regarding alcohol use is improved. Physical Exam Mental Examination Appearance: Unkempt (Slightly improved) Eye Contact: Maintains Eye Contact Motor Behavior: Unremarkable Speech: Normal Mood: Depressed (Slightly improved) Affect: Anxious and Sad (Brightens with certain topics) Thought Process: Intact Insight: Good Judgement: Good Vital Signs (Past 24 Hours) Last Vital Signs Temp 36.5 C 03/20/25 06:00 Pulse 74 03/20/25 06:15 Resp 16 03/20/25 06:00 BP 110/76 03/20/25 06:15 Pulse Ox 96 03/17/25 23:50 O2 Del Method Room Air 03/17/25 23:50 No changes to physical exam today. No evidence of tremors. Hydration is improved. Results & Data ([facility]) Current Inpatient Medications Current Inpatient Medications: Current Inpatient Medications Acetaminophen (Acetaminophen 325 Mg Tab) 650 mg PO Q4H PRN PRN Reason: Headache or Minor Fever Stop: 04/16/25 22:12 Al Hydrox/Mg Hydrox/Simethicone (Aluminum/Magnesium Susp 30 Ml Udc) 30 ml PO Q4H PRN PRN Reason: GI Upset Stop: 04/16/25 22:12 Bismuth Subsalicylate (Bismuth Subsalicylate 262 Mg Chew) 2 tab PO Q30M PRN PRN Reason: Loose Stool/Diarrhea Stop: 04/16/25 22:12 Last Admin: 03/19/25 09:47 Dose: 2 tab Duloxetine HCl (Duloxetine Hcl 20 Mg Cap) 20 mg PO BID SHYANNE Stop: 04/17/25 20:59 Last Admin: 03/20/25 08:49 Dose: 20 mg Folic Acid (Folic Acid 1 Mg Tab) 1 mg PO QAM SHYANNE Stop: 04/17/25 12:29 Last Admin: 03/20/25 08:49 Dose: 1 mg Hydroxyzine HCl (Hydroxyzine Hcl 25 Mg Tab) 50 mg PO HSZ PRN PRN Reason: Insomnia Stop: 04/16/25 22:12 Hydroxyzine HCl (Hydroxyzine Hcl 25 Mg Tab) 25 mg PO Q4H PRN PRN Reason: Anxiety Stop: 04/16/25 22:12 Loperamide HCl (Loperamide Hcl 2 Mg Cap) 2 mg PO BID PRN PRN Reason: for diarrhea Stop: 04/18/25 11:02 Magnesium Hydroxide (Magnesium Hydroxide Susp 30 Ml Udc) 30 ml PO DAILY PRN PRN Reason: Constipation Stop: 04/16/25 22:12 Miscellaneous (Remove Nicoderm Patch) 1 each N/A DAILY@0859 SHYANNE Stop: 04/17/25 08:58 Last Admin: 03/20/25 08:49 Dose: 1 each Nicotine (Nicotine 21 Mg/24 Hr Tdsy) 1 patch TD QAM SHYANNE Stop: 04/17/25 08:59 Last Admin: 03/20/25 08:49 Dose: 1 patch Phenobarbital (Phenobarbital 15 Mg Tab) 15 mg PO BID SHYANNE Stop: 04/18/25 20:59 Last Admin: 03/20/25 08:56 Dose: 15 mg Sodium Chloride (Sodium Chloride 0.65% Na Soln 45 Ml ([place])) 1 - 2 sprays NA PRN PRN PRN Reason: Nasal Dryness/Congestion Stop: 04/16/25 22:12 Post Discharge Appointments Contact Information Discharge Discharge Address: [address] [place] [id number]
[2025-03-20] MEDS: INFLUENZA VACC TS2025-26(6m+)/PF (IIV3) 0.5mL Syr IM ONE (10:44)
--- NOTE | 2025-03-21 09:53 | Psychiatric Progress Note ---
Date of Service March 21, 2025 Impression / Recommendations Impression Patient with MDD, severe, without psychosis and long history of alcohol use disorder with recent relapsed that cause exacerbation of depression symptoms. Alcohol withdrawal symptoms responding well to phenobarbital taper. No evidence of tremor or seizures. Patient is showing good response to treatment, great progress in terms of withdrawal symptomatology. Will finalize phenobarbital taper before discharge on Wednesday. (1) Alcohol withdrawal: (2) Depression with suicidal ideation: (3) B12 deficiency: Plan 03/21/25 Lowered phenobarbital to 7.5 mg p.o. twice daily Continue Cymbalta 20 mg p.o. twice daily B12 1000 mcg IM given today, then recommend once a week x 4, then monthly Preparing for discharge on Wednesday03/20/25 Phenobarbital 15 mg twice daily will continue for today and will lower again tomorrow Continue rest of medications without changes continue unit programming Second dose of B12 scheduled for tomorrow Family meeting scheduled for Wednesday03/19/25: -Continue Cymbalta 20 mg p.o. twice daily -Lowered her phenobarbital to 20 mg p.o. twice daily -Continue vitamin supplementation -As needed loperamide added today -Encouraged to increase water intake 03/18/25: The patient was admitted to the [facility] on q15 min checks (behavioral with suicide precautions) for safety. The patient will participate in group, recreational, and milieu therapies and will be offered additional individual and family sessions as clinically appropriate. -Increase Cymbalta to 20 mg p.o. twice daily -Will give B12 1000 mcg IM first dose now, recommend once a week x 4, then monthly -Start folic acid 1 mg daily -Continue phenobarbital 30 mg p.o. twice daily for 4 doses and continue tapering off as clinically indicated. Suicide Risk Level Suicide Risk Level: High-Moderate (q15 min suicide checks) Risk Factors Assessment Do You Have Access To A Gun?: No Interval History Identifying Information JAIR ZIMMERMAN is a 50-year-old F who currently lives with her and son, has a history of alcohol use disorder and depression, and was admitted on 03/17/25 22:28 on a 201 voluntary commitment for suicidal ideation. Chief Complaint "I feel a little better today. I slept better." Review of Systems Sleep Information Total Hours of Sleep: 6.25 Meal Information Percent Meal Consumed - Breakfast: 50 Percent Meal Consumed - Lunch: 90 Percent Meal Consumed - Dinner: 50 Nutrition Comment: pt still not feeling well Subjective Subjective Patient was seen & assessed and interval progress reviewed with treatment team. According to staff patient received a visit from her and it went well. For support system meeting is scheduled for Wednesday. She denies suicidal ideation today. On exam patient presented with brighter affect. No evidence of involuntary movements. She she tolerated well the lower dose of phenobarbital. We discussed the need to completely taper off before discharge, patient is agreeable to this plan. Patient tolerating Cymbalta well, denies GI symptoms. Patient reported that her sleep was better last night. Denied symptoms consistent with depression, delio, or psychosis. Patient is interested in receiving Vivitrol. I have completed the nonformulary request. We also discussed Lab results: B12 228 with homocystine of 12.5. Patient received B12 1000 mcg IM today. Physical Exam Mental Examination Appearance: Unkempt (Slightly improved) Eye Contact: Maintains Eye Contact Motor Behavior: Unremarkable Speech: Normal Mood: Calm Affect: Anxious Thought Process: Intact Insight: Good Judgement: Good Vital Signs (Past 24 Hours) Last Vital Signs Temp 36.6 C 03/21/25 06:47 Pulse 60 03/21/25 06:47 Resp 20 03/21/25 06:47 BP 110/76 03/20/25 06:15 Pulse Ox 96 03/21/25 06:47 O2 Del Method Room Air 03/21/25 06:47 No changes to physical exam today. No evidence of tremors. Hydration is im proved. Results & Data ([facility]) Current Inpatient Medications Current Inpatient Medications: Current Inpatient Medications Acetaminophen (Acetaminophen 325 Mg Tab) 650 mg PO Q4H PRN PRN Reason: Headache or Minor Fever Stop: 04/16/25 22:12 Al Hydrox/Mg Hydrox/Simethicone (Aluminum/Magnesium Susp 30 Ml Udc) 30 ml PO Q4H PRN PRN Reason: GI Upset Stop: 04/16/25 22:12 Bismuth Subsalicylate (Bismuth Subsalicylate 262 Mg Chew) 2 tab PO Q30M PRN PRN Reason: Loose Stool/Diarrhea Stop: 04/16/25 22:12 Last Admin: 03/19/25 09:47 Dose: 2 tab Cyanocobalamin (Cyanocobalamin 1000 Mcg/Ml Vial) 1,000 mcg IM ONCE ONE Stop: 03/21/25 09:53 Duloxetine HCl (Duloxetine Hcl 20 Mg Cap) 20 mg PO BID [facility] Stop: 04/17/25 20:59 Last Admin: 03/21/25 08:48 Dose: 20 mg Folic Acid (Folic Acid 1 Mg Tab) 1 mg PO QAM SHYANNE Stop: 04/17/25 12:29 Last Admin: 03/21/25 08:48 Dose: 1 mg Hydroxyzine HCl (Hydroxyzine Hcl 25 Mg Tab) 50 mg PO HSZ PRN PRN Reason: Insomnia Stop: 04/16/25 22:12 Hydroxyzine HCl (Hydroxyzine Hcl 25 Mg Tab) 25 mg PO Q4H PRN PRN Reason: Anxiety Stop: 04/16/25 22:12 Loperamide HCl (Loperamide Hcl 2 Mg Cap) 2 mg PO BID PRN PRN Reason: for diarrhea Stop: 04/18/25 11:02 Magnesium Hydroxide (Magnesium Hydroxide Susp 30 Ml Udc) 30 ml PO DAILY PRN PRN Reason: Constipation Stop: 04/16/25 22:12 Miscellaneous (Remove Nicoderm Patch) 1 each N/A DAILY@0859 [facility] Stop: 04/17/25 08:58 Last Admin: 03/21/25 08:47 Dose: 1 each Nicotine (Nicotine 21 Mg/24 Hr Tdsy) 1 patch TD QAM [facility] Stop: 04/17/25 08:59 Last Admin: 03/21/25 08:49 Dose: 1 patch Phenobarbital (Phenobarbital 15 Mg Tab) 15 mg PO BID [facility] Stop: 04/18/25 20:59 Last Admin: 03/21/25 08:47 Dose: 15 mg Sodium Chloride (Sodium Chloride 0.65% Na Soln 45 Ml ([place])) 1 - 2 sprays NA PRN PRN PRN Reason: Nasal Dryness/Congestion Stop: 04/16/25 22:12 Post Discharge Appointments Contact Information Discharge Discharge Address: [address] [place], [place] [address] [address]
[2025-03-21] MEDS: CYANOCOBALAMIN 1000 MCG/ML VIAL IM ONE (10:46)
[2025-03-21] MEDS: CYANOCOBALAMIN 1000 MCG/ML VIAL IM STA (11:13)
[2025-03-21] MEDS ORDERED: VIVITROL 380 MG IM SCH (15:15)
--- NOTE | 2025-03-22 09:46 | Psychiatric Progress Note ---
Date of Service March 22, 2025 Impression / Recommendations Impression Patient with MDD, severe, without psychosis and long history of alcohol use disorder with recent relapsed that cause exacerbation of depression symptoms. Alcohol withdrawal symptoms responding well to phenobarbital taper. No evidence of tremor or seizures. Approaching baseline. phenobarbital taper discontinued today patient will not receive a dose tonight will reevaluate tomorrow. (1) Alcohol withdrawal: (2) Depression with suicidal ideation: (3) B12 deficiency: Plan 03/22/25 Discontinue phenobarbital B12 1000 mcg IM 1 dose tomorrow (03/23/2025) Start naltrexone 50 mg p.o. daily with dinner Continue Cymbalta 20 mg p.o. twice daily) 03/21/25 Lowered phenobarbital to 7.5 mg p.o. twice daily Continue Cymbalta 20 mg p.o. twice daily B12 1000 mcg IM given today, then recommend once a week x 4, then monthly Preparing for discharge on Wednesday03/20/25 Phenobarbital 15 mg twice daily will continue for today and will lower again tomorrow Continue rest of medications without changes continue unit programming Second dose of B12 scheduled for tomorrow Family meeting scheduled for Wednesday03/19/25: -Continue Cymbalta 20 mg p.o. twice daily -Lowered her phenobarbital to 20 mg p.o. twice daily -Continue vitamin supplementation -As needed loperamide added today -Encouraged to increase water intake 03/18/25: The patient was admitted to the [facility] ([facility] unit) on q15 min checks (behavioral with suicide precautions) for safety. The patient will participate in group, recreational, and milieu therapies and will be offered additional individual and family sessions as clinically appropriate. -Increase Cymbalta to 20 mg p.o. twice daily -Will give B12 1000 mcg IM first dose now, recommend once a week x 4, then monthly -Start folic acid 1 mg daily -Continue phenobarbital 30 mg p.o. twice daily for 4 doses and continue tapering off as clinically indicated. Suicide Risk Level Suicide Risk Level: High-Moderate (q15 min suicide checks) Risk Factors Assessment Do You Have Access To A Gun?: No Interval History Identifying Information JAIR ZIMMERMAN is a 50-year-old F who currently lives with her and son, has a history of alcohol use disorder and depression, and was admitted on 03/17/25 22:28 on a 201 voluntary commitment for suicidal ideation. Chief Complaint "I am feeling well". Review of Systems Sleep Information Total Hours of Sleep: 8 Meal Information Percent Meal Consumed - Breakfast: 50 Percent Meal Consumed - Lunch: 100 Percent Meal Consumed - Dinner: 100 Nutrition Comment: pt still not feeling well Subjective Subjective Patient was seen & assessed and interval progress reviewed with nursing and social work. According to staff patient is doing well. She is excited about upcoming discharge. Still taking phenobarbital today. Has been referred to [place] for psychiatry and drug and alcohol treatment and to send care for therapy. Patient presented calm and cooperative with bright affect. She has tolerated Cymbalta well and wishes to continue the medication without changes. We discussed on availability of Vivitrol and starting on oral naltrexone, patient agreed with the plan she will receive first dose tonight with dinner. Discussed side effects including GI. On exam there are no visible signs of alcohol withdrawal. Patient has tolerated phenobarbital taper well. Most recent dose was 7.5 twice daily. Patient received morning dose today and medication will be discontinued we will evaluate her response after discontinuation if stable she may be ready for discharge tomorrow or Wednesday. Also discussed vitamin B-12 supplementation patient agreed to get her third injection tomorrow and may continue on sublingual [id number] B12 afterwards. Patient was educated about monitoring the level and maintaining a level between [id number] to prevent neuropsychiatric symptoms. Educated about the need to evaluate if she has an absorption problem or if the low levels were related to poor diet. This can be addressed in the outpatient with her PCP. Patient verbalized understanding Physical Exam Mental Examination Appearance: Unkempt (Slightly improved) Eye Contact: Maintains Eye Contact Motor Behavior: Unremarkable Speech: Normal Mood: Calm Affect: Anxious Thought Process: Intact Insight: Good Judgement: Good Vital Signs (Past 24 Hours) Last Vital Signs Temp 36.2 C L 03/22/25 06:19 Pulse 78 03/22/25 06:20 Resp 16 03/22/25 06:19 BP 98/73 L 03/22/25 06:20 Pulse Ox 96 03/21/25 06:47 O2 Del Method Room Air 03/21/25 06:47 No changes to physical exam today. No evidence of tremors. Hydration is improved. Results & Data ([facility] [place]) Current Inpatient Medications Current Inpatient Medications: Current Inpatient Medications Acetaminophen (Acetaminophen 325 Mg Tab) 650 mg PO Q4H PRN PRN Reason: Headache or Minor Fever Stop: 04/16/25 22:12 Al Hydrox/Mg Hydrox/Simethicone (Aluminum/Magnesium Susp 30 Ml Udc) 30 ml PO Q4H PRN PRN Reason: GI Upset Stop: 04/16/25 22:12 Bismuth Subsalicylate (Bismuth Subsalicylate 262 Mg Chew) 2 tab PO Q30M PRN PRN Reason: Loose Stool/Diarrhea Stop: 04/16/25 22:12 Last Admin: 03/19/25 09:47 Dose: 2 tab Duloxetine HCl (Duloxetine Hcl 20 Mg Cap) 20 mg PO BID [facility] Stop: 04/17/25 20:59 Last Admin: 03/22/25 09:12 Dose: 20 mg Folic Acid (Folic Acid 1 Mg Tab) 1 mg PO QAM [facility] Stop: 04/17/25 12:29 Last Admin: 03/22/25 09:12 Dose: 1 mg Hydroxyzine HCl (Hydroxyzine Hcl 25 Mg Tab) 50 mg PO HSZ PRN PRN Reason: Insomnia Stop: 04/16/25 22:12 Hydroxyzine HCl (Hydroxyzine Hcl 25 Mg Tab) 25 mg PO Q4H PRN PRN Reason: Anxiety Stop: 04/16/25 22:12 Loperamide HCl (Loperamide Hcl 2 Mg Cap) 2 mg PO BID PRN PRN Reason: for diarrhea Stop: 04/18/25 11:02 Magnesium Hydroxide (Magnesium Hydroxide Susp 30 Ml Udc) 30 ml PO DAILY PRN PRN Reason: Constipation Stop: 04/16/25 22:12 Miscellaneous (Remove Nicoderm Patch) 1 each N/A DAILY@0859 [facility] Stop: 04/17/25 08:58 Last Admin: 03/22/25 09:16 Dose: Not Given Nicotine (Nicotine 21 Mg/24 Hr Tdsy) 1 patch TD QAM [facility] Stop: 04/17/25 08:59 Last Admin: 03/22/25 09:12 Dose: 1 patch Phenobarbital (Phenobarbital 15 Mg Tab) 7.5 mg PO BID [facility] Stop: 04/20/25 20:59 Last Admin: 03/22/25 09:14 Dose: 7.5 mg Sodium Chloride (Sodium Chloride 0.65% Na Soln 45 Ml ([place])) 1 - 2 sprays NA PRN PRN PRN Reason: Nasal Dryness/Congestion Stop: 04/16/25 22:12 Post Discharge Appointments Contact Information Discharge Discharge Address: [facility] [place] [address]
[2025-03-22] MEDS: NALTREXONE HCL 50 MG TAB PO SCH (17:55)
--- NOTE | 2025-03-22 17:59 | Discharge Summary ---
Date of Service March 23, 2025 History of Present Illness Patient is a 50-year-old female with a history of depression, alcohol use disorder, who was admitted to the medical floor via ED due to alcohol withdrawal symptoms. Psychiatry consulted on 03/17/25. During the psychiatric evaluation on 03/17/25, presented with dysphoric affect and was tearful. she exhibits hopelessness and guilt and shame related to alcohol use. Suicidal ideations are still present. Patient agreed to start medication for depression and anxiety, and to be voluntarily admitted to the mental health unit for further stabilization. She was still receiving Phenobarb orally for alcohol withdrawal. Patient was admitted to 3S in the evening after being assessed as medically cleared by the primary team. The labs I ordered during the consult were still pending (B12, methylmalonic acid, homocystine). Patient described feeling depressed most of the day for a few months now. She has been feeling lonely and has had suicidal ideations that started on the day of admission (03/16/2025.). Patient admits that she was gathering all kinds of medication that she could find in the house with the intent to overdose. When asked what stopped her, patient stated "my pets were becoming very clingy, I guess they could send something was wrong, and I started to worry we will take care of them if I was gone." Although she reports that she has a good relationship with her and son, she complains of feeling along the and believes that her is unaware of her depression. Today, patient reported she took the first dose of Cymbalta with no evidence of side effects. She is agreeable to optimizing the dose. We received B12 level (below 300) and patient agreed to receiving IM supplementation. Physical Exam Vital Signs (Past 24 Hours) Last Vital Signs Temp 36.2 C L 03/22/25 06:19 Pulse 78 03/22/25 06:20 Resp 16 03/22/25 06:19 BP 98/73 L 03/22/25 06:20 Pulse Ox 96 03/21/25 06:47 O2 Del Method Room Air 03/21/25 06:47 No changes to physical exam today. No evidence of tremors. Principal Diagnosis MDD, severe, without psychosis Alcohol use disorder, severe, in early remission B12 deficiency Psychiatric Data See daily stay summary. In short, safety was maintained and the patient was cooperative with care. Medication changes included starting Cymbalta 20 mg twice daily( for depression and pain) and naltrexone (for alcohol use disorder) and they tolerated this well. A family session was [held] and safety plan was completed prior to discharge. Day of Discharge Assessment Today the patient voices readiness for discharge. They note improvement in mood and deny thoughts to harm self or others. Thoughts remain organized and they are improved from admission. There is no evidence of psychosis. They agree to take mediations as prescribed and keep follow-up appointments. They are stable for discharge to outpatient level of care. Patient presents with brighter affect, future oriented. Denied side effects f rom medications. Denied cravings for alcohol. Ready for discharge. Transition of Care Transition Of Care Record: was reviewed with the patient Advance Directives Advance Directives Information Provided: Yes Advance Directives: No Mental Health Advance Directive: No Advance Directives on File: No Living Will: No Power of Pick Up Attendant: No Advance Directives Reason:: Declines as Mental Health Visit. Suicide Risk Level Suicide Risk Level: Low (q15 min observation checks) Suicide Risk Level Comments: Suitable for discharge Risk Factors Assessment Do You Have Access To A Gun?: No Protective Factors Assessment : Yes Stable Relationships: Yes Supportive Family: Yes Good Rapport with Provider: Yes Tobacco Cessation at Discharge Tobacco Cessation Medication Prescribed at Discharge: Offered & Prescribed Total Time Total Time Spent: Greater Than 30 Minutes Hospital Course (1) Alcohol withdrawal: No evidence of withdrawal symptoms today. The patient's AUDIT score suggests problematic drinking (Zone III WHO). Brief intervention was offered and accepted. Interventions provided on a daily basis (greater than 5 min in length) and included assessing readiness to quit, advice on how to reduce or abstain from alcohol, and to set a specific goal for this hospitalization. Patient received counseling for alcohol use disorder. Behavior change techniques (motivational/self-help counseling), aid the patient in achieving agreed-upon goals by acquiring the skills, confidence, and social/environmental supports for behavior change, supplemented with adjunctive medical treatments (naltrexone). Patient has been referred for OP drug and alcohol treatment. (2) Depression with suicidal ideation: (3) B12 deficiency: Patient received 3 separate doses of cyanocobalamin 1000 mcg IM (Wednesday, Wednesday, Wednesday). May continue sublingual supplementation. Recommended to reevaluate level (target level 400-900) Plan No evidence of deterioration after discontinuing phenobarbital. Ready for discharge. 03/22/25 Discontinue phenobarbital B12 1000 mcg IM 1 dose tomorrow (03/23/2025) Start naltrexone 50 mg p.o. daily with dinner Continue Cymbalta 20 mg p.o. twice daily) 03/21/25 Lowered phenobarbital to 7.5 mg p.o. twice daily Continue Cymbalta 20 mg p.o. twice daily B12 1000 mcg IM given today, then recommend once a week x 4, then monthly Preparing for discharge on Wednesday03/20/25 Phenobarbital 15 mg twice daily will continue for today and will lower again tomorrow Continue rest of medications without changes continue unit programming Second dose of B12 scheduled for tomorrow Family meeting scheduled for Wednesday03/19/25: -Continue Cymbalta 20 mg p.o. twice daily -Lowered her phenobarbital to 20 mg p.o. twice daily -Continue vitamin supplementation -As needed loperamide added today -Encouraged to increase water intake 03/18/25: The patient was admitted to the [facility] ([facility] unit) on q15 min checks (behavioral with suicide precautions) for safety. The patient will participate in group, recreational, and milieu therapies and will be offered additional individual and family sessions as clinically appropriate. -Increase Cymbalta to 20 mg p.o. twice daily -Will give B12 1000 mcg IM first dose now, recommend once a week x 4, then monthly -Start folic acid 1 mg daily -Continue phenobarbital 30 mg p.o. twice daily for 4 doses and continue tapering off as clinically indicated. Mental Health & Subst Abuse Tx Psychiatrist Name of Psychiatrist: Aileen (Drug and Alcohol counseling and psychiatry intake) Psychiatrist's Date Of Appointment With Psychiatric Provider: 04/06/25 Time of Appointment with Psychiatrist: 8am Psychiatric Appointment Comment: In person. [address], [facility] [address], [facility] [address] Therapist Name of Therapist: Sissy (Mental health therapy intake) Therapist's Date of Therapist Appointment: 03/26/25 Time of Therapist Appointment: 12:30PM Therapy Appointment Comment: In person. [address] [place] [id number] Vibrator Equipment Tester Name of Vibrator Equipment Tester: [employer] service unit (transplant case manager) Phone Number for Vibrator Equipment Tester: [phone] Date of Appointment with Vibrator Equipment Tester: 03/27/25 Time of Appointment with Vibrator Equipment Tester: 9AM Case Management Appointment Comment: gravity manager will visit you at your home Post Discharge Appointments Smoking Cessation Counseling Tobacco Cessation Medication Prescribed at Discharge: Offered & Prescribed Other #1: Name of Aftercare Appointment: [facility] (Medicaid application) Phone Number of Aftercare Appointment: Aftercare Appointment Comment: Call to check on status of medicaid application Contact Information Discharge Discharge Address: [address] [place] [id number] Discharge Plan Discharge Items Patient Disposition: Home - Self-Care Reason For Visit: MAJOR DEPRESSOR DESORDER Discharge Diagnosis: MDD severe without psychosis Alcohol use disorder B12 deficiency Condition on Discharge: Good Activity: Resume your previous activity Non-emergency contact: Primary Care Provider, Psychiatrist and Therapist Call non-emergency contact if: you have any medication questions and your symptoms worsen Follow-up/Referrals: PCP,NO [Primary Care Provider] - Diet: Regular Addtl Attending Provider Instructions: SPECIAL CARE INSTRUCTIONS: 1. Follow through with your scheduled aftercare appointments. If unable to keep an appointment, please call to reschedule. 2. Take your medication only as prescribed. Medication should not be changed or stopped without the approval of your doctor. In the event of worsening symptoms or concerns about side effects, contact your doctor immediately. 3. Utilize new healthy coping skills, anger management skills, and stress management skills learned during your hospitalization. Journal feelings and process them with a support person. Identify stressors or situations that may result in relapse, deterioration or inappropriate behaviors and develop a plan to deal with those issues. 4. If your coping skills are ineffective and you are in crisis, contact your outpatient providers for direction. If unable to reach your providers, please call the [facility] CRISIS LINE AT , go to the [facility] walk-in center at [address] [facility] [address], [address], [place], or go to the closest Emergency Room. 5. Avoid alcohol and un-prescribed drugs. 6. You have been provided with the Mental Health Advance Directives Pamphlet for your review. 7. Your condition is stable for discharge to outpatient level of care, but recovery is an ongoing process. Ifthoughts to harm yourself or others return, follow the safety plan developed during your stay. Planning for a safe return home includes securing weapons. Our treatment team recommends weaponsbe removed from the home until your outpatient provider reassesses your progress. In rare cases where the items themselvescannot be removed, guns and ammunitionshould be secured separatelyand keys stored by a reliable personoutside of the home. If you were admitted on an involuntary commitment, the police or other legal authorities may be involved in this process. AFTERCARE APPOINTMENTS: * Please call your insurance company prior to your scheduled appointment to confirm your aftercare providers are covered. Take your insurance information to your appointments. WHO TO CALL AND WHEN: Medical Emergencies: For questions or emergencies related to your hospital stay, please contact the Inpatient Behavioral Health Unit at [phone]. A psychiatric clinical nurse specialist is on-call 23/11 for the Behavioral Health Unit for emergencies At any time you feel your situation is an emergency, you may also call 911 immediately. Pending Studies at Discharge: No Studies:: Vivitrol recommended, will be provided at [place] [facility]one Forms: [facility], Smoking Cessation Medications and DC Order Prescriptions: New naltrexone 50 mg Tablet 50 mg PO QDD 30 Days Qty: 30 0RF nicotine [Nicoderm CQ] 21 mg/24 hr Patch 24 Hour 1 patch transdermal QAM Qty: 21 0RF folic acid 1 mg Tablet 1 mg PO QAM Qty: 30 0RF duloxetine 20 mg Capsule,Delayed Release(Dr/Ec) 20 mg PO BID Qty: 45 0RF Continued spironolactone 50 mg Tablet 50 mg PO BID Hold Instructions: Provider's Order medroxyprogesterone 150 mg/mL Syringe 150 mg IM . EVERY 3 MONTHS Hold Instructions: Provider's Order Discontinued trazodone 50 mg Tablet 50 mg PO HS PRN (Reason: Sleep) Hold Instructions: Provider's Order chlordiazepoxide HCl 10 mg capsule 10 mg PO QAM Hold Instructions: Provider's Order hydroxyzine HCl 25 mg Tablet 25 mg PO Q6 PRN (Reason: Anxiety) Hold Instructions: Provider's Order escitalopram oxalate 10 mg tablet 10 mg PO DAILY Hold Instructions: Provider's Order phenobarbital 15 mg Tablet 15 mg PO Q12H Qty: 4 0RF phenobarbital 30 mg Tablet 60 mg PO Q12H Qty: 3 0RF phenobarbital 30 mg Tablet 30 mg PO Q12H Qty: 4 0RF nicotine [Nicoderm CQ] 21 mg/24 hr Patch 24 Hour 1 patch transdermal QAM Qty: 3 0RF Discharge Orders: Discharge Order (Routine); Ordered 03/23/25 Ordered By: Marita Matthews/Other Patient Handouts: Anxiety Disorder [facility] [employer], Counseling for Depression, Alcohol Withdrawal: What to Expect, ED Alcohol Withdrawal Seizure, Vitamin B-12 Admission Data Admit Date/Time: 03/17/25 22:28 Attending Provider: Marita Miller Admit Provider: Marita Miller Primary Care Provider: PCP,NO Other Interventions: Discharge Summary Assessment (RN) Last Done: 03/23/25 08:57 PSY Interdisciplinary Discharge Planning Last Done: 03/23/25 09:01 C[place] [address] D/C day mgmt > 30 min Patient Type Established History Expanded Problem Focused Medical Decision Making Moderate Complexity Diagnoses Alcohol withdrawal F10.939 Depression with suicidal ideation F32.A; R45.851 B12 deficiency E53.8 Time Spent (min) 45
[2025-03-23 06:23] VITALS: RESP 14; TEMP 98
[2025-03-23 08:59] VITALS: BP 110/76; PULSE 75
[2025-03-23] MEDS: CYANOCOBALAMIN 1000 MCG/ML VIAL IM ONE (09:31)
== END 2025-03-23 09:59 | disposition home or self-care (01) | DRG 885 ==
LOC: 3S 22:28